=== PATIENT | male | born 1980 | race Two or more races ===

== ENCOUNTER 2021-05-05 06:11 | Emergency (ER) | payer BC ==
[~2021-05-05] VITALS: Ht 165.1 cm; Wt 100.0 kg
--- NOTE | 2021-05-05 06:16 | NUR ---
EKG DONE IN TRIAGE.
[2021-05-05] MEDS ORDERED: MECLIZINE CHEWABLE 25 MG TAB PO ONE (07:00)
--- NOTE | 2021-05-05 07:00 | NUR ---
REPORT TO NASIR MARTEL
[2021-05-05] MEDS ORDERED: MECLIZINE CHEWABLE 25 MG TAB ONE (07:17)
--- NOTE | 2021-05-05 07:21 | NUR ---
ASSUMING CARE OF PT AFTER BEDSIDE REPORT. VSS. MELENDREZ. AT BEDSIDE. PT MEDICATED PER EMAR.
[2021-05-05 07:41] LABS: BASOPHILS % (AUTO) 1 % (0-1); EOSINOPHILS % (AUTO) 3 % (1-7); LYMPHOCYTES % (AUTO) 23 % (22-44); MEAN CORPUSCULAR HEMOGLOBIN 30.8 pg (27.5-34.5); MEAN PLATELET VOLUME 8.1 fL (7.4-10.4); MONOCYTES % (AUTO) 11 % (2-9); NEUTROPHILS % (AUTO) 62 % (42-75); PLATELET COUNT 252 x10^3/uL (130-400); RED BLOOD COUNT 4.71 x10^6/uL (4.38-5.82); RED CELL DISTRIBUTION WIDTH 12.7 % (9.4-14.8)
[2021-05-05 07:52] LABS: ALANINE AMINOTRANSFERASE 29 U/L (12-78); ALBUMIN 3.4 g/dL (3.4-5.0); ANION GAP 5 mmol/L (5-15); CALCIUM 8.4 mg/dL (8.5-10.1); CHLORIDE 110 mmol/L (98-107)
[2021-05-05 07:55] LABS: ALKALINE PHOSPHATASE 88 U/L (45-117); BILIRUBIN,TOTAL 0.5 mg/dL (0.2-1.0); CREATININE 0.87 mg/dL (0.7-1.3); TOTAL PROTEIN 7.3 g/dL (6.4-8.2)
--- NOTE | 2021-05-05 08:20 | NUR ---
pt asleep with even and unlabored respirations. chirag. lucian.
[2021-05-05 09:14] VITALS: BP 142/90
--- NOTE | 2021-05-05 09:14 | NUR ---
PT RESTING IN BED. VSS. NADN. TO BE D/C
--- NOTE | 2021-05-05 09:59 | NUR ---
Patient given discharge instructions and they have confirmed that they understand the instructions. Patient ambulatory with steady gait. NAD, all questions answered appropriately, denies additional needs at this time. No personal belongings left in room after discharge.
== END 2021-05-05 10:00 | disposition home or self-care (01) ==
LOC: ED 08:42
DX: R42 Dizziness and giddiness (principal); R11.0 Nausea
CPT/HCPCS: 36415; 80053; 85025; 93005; 99284